=== PATIENT | male | born 1950 | race African-American/Black ===

== ENCOUNTER 2019-06-19 05:11 | Emergency (ER) | payer OTHER ==
[~2019-06-19] VITALS: Ht 182.9 cm; Wt 136.0 kg
[2019-06-19] MEDS ORDERED: ACETAMINOPHEN 325MG TABLET PO ONE (05:45)
[2019-06-19 06:12] LABS: BASOPHILS % 0.7 % (0.0-2.0); EOSINOPHILS % 1.5 % (0.0-5.0); HEMATOCRIT. 43.1 % (42.0-52.0); HEMOGLOBIN. 13.7 g/dL (14.0-18.0); LYMPHOCYTES % 21.8 % (20.0-50.0); MEAN CORPUSCULAR HEMOGLOBIN 24.3 pg (28.0-32.0); MEAN CORPUSCULAR VOLUME 76.3 fL (80.0-94.0); MONOCYTES % 8.5 % (2.0-8.0); NEUTROPHILS % 67.5 % (40.0-76.0); PLATELET 173 x1000/uL (130-400); RED BLOOD CELL COUNT 5.64 mill/uL (4.7-6.1); RED CELL DISTRIBUTION WIDTH 16.3 % (11.6-14.6)
[2019-06-19] MEDS ORDERED: SODIUM CHLORIDE 0.9% 1,000 ML IV ONE (06:18)
[2019-06-19 06:19] LABS: CHLORIDE 107 mEq/L (98-107)
[2019-06-19 07:39] LABS: CLARITY URINE CLEAR (CLEAR); COLOR URINE YELLOW (YELLOW); KETONES URINE TRACE (NEGATIVE); LEUKOCYTE ESTERASE URINE NEGATIVE (NEGATIVE); NITRITE URINE NEGATIVE (NEGATIVE); OCCULT BLOOD URINE NEGATIVE (NEGATIVE); PROTEIN URINE TRACE (NEGATIVE)
[2019-06-19 08:06] VITALS: BP 156/86
== END 2019-06-19 08:08 | disposition home or self-care (01) ==
LOC: ER 05:11
DX: R10.84 Generalized abdominal pain (principal); E11.9 Type 2 diabetes mellitus without complications; I10 Essential (primary) hypertension; Z79.899 Other long term (current) drug therapy
CPT/HCPCS: 36415; 80053; 81003; 83690; 85025; 96360; 96361; 99283; J7030